=== PATIENT | male | born 1990 | race Caucasian/White ===

== ENCOUNTER 2020-12-31 21:17 | Emergency (ER) | payer SELFPAY ==
[2020-12-31 21:19] VITALS: BP 117/82; PULSE 80; RESP 14; TEMP 36.6; O2SAT 97; BMI 36.0
--- NOTE | 2020-12-31 21:59 | EKG12_ITS ---
Test Reason : CP Blood Pressure : / mmHG Vent. Rate : 067 BPM Atrial Rate : 067 BPM P-R Int : 132 ms QRS Dur : 090 ms QT Int : 368 ms P-R-T Axes : 049 045 062 degrees QTc Int : 388 ms Normal sinus rhythm with sinus arrhythmia Normal ECG Confirmed by PATRICK HART, KELLY ([id number]), state editor URBANO ENRIQUEZ ([id number]) on 01/04/2021 10:57:17 AM Referred By: AMOS SIDDIQUI Confirmed By:KELLY NGUYEN MD
--- NOTE | 2020-12-31 21:59 | RAD_ITS ---
EXAM: XR CHEST, 1 VIEW : 1990 CLINICAL INDICATION: cp TECHNIQUE: Frontal view of the chest. This report was created using [employer] report generation technology. COMPARISON: None. FINDINGS: LUNGS AND PLEURAL SPACES: Unremarkable. No consolidation or edema. No pneumothorax. No effusion. HEART: Unremarkable. Cardiac silhouette not enlarged. MEDIASTINUM: Central airways and mediastinal contour are unremarkable. BONES/JOINTS: Unremarkable. SOFT TISSUES: Unremarkable. RAD/Chest 1 View (Portable) IMPRESSION: No radiographic evidence of acute cardiopulmonary disease. at 2247 Reported and signed by: Thuan De La Rosa MD Electronically Signed: Thuan De La Rosa MD at 22:46 EDT Tel , Service support ,
--- NOTE | 2020-12-31 22:34 | EDS_ITS ---
HPI History of Present Illness Chief Complaint: Chest Pain Informant: patient Onset/Context/Timing Onset: Weeks Activity at onset: gradual Timing: Intermittent Quality: Positive for Pain and Sharp Location: Left Chest Current Severity: Gone Maximum Severity: Mild Worsened By: Nothing Relieved By: Nothing Narrative Prior Similar Symptoms: No Recent Illness/Hospitalization: No CVD Risk Factors: Negative for Hypertension, Diabetes, Hypercholesterolemia, Family History 1' </=55 and Smoking PE Risk Factors: Negative for Recent Travel/Surgery, Recent Immobilization, Prior DVT or PE, Cancer and OCP + Smoking + >/=35 TAD Risk Factors: Negative for Marfan's Syndrome and Hypertension [facility] Medical History Allergies Home Medications NK 12/31/20 [History Last Taken Unknown] Allergy/AdvReac Type Severity Reaction Status Date / Time No Known Allergies Allergy Verified 12/31/20 21:19 Social History Smoking Status: Unknown if ever smoked ROS ROS ED ROS Narrative Denies recent illness. No significant travel, surgery or immobilization. No DVT or PE history. This is not exertional chest pain. Review of Systems ROS Unobtainable: Denies due to encephalopathy Constitutional Constitutional ED: Denies chills or fever(s) Eyes Eyes: Denies none or change in vision ENT ENT ED: Denies ear pain or sore throat Cardiovascular Cardiovascular: Reports as per HPI and chest pain; Denies orthopnea, palpitations, paroxysmal nocturnal dyspnea or racing heartbeat Respiratory/Chest Respiratory/Chest: Denies cough, dyspnea, dyspnea on exertion, orthopnea or paroxysmal nocturnal dyspnea Gastrointestinal Gastrointestinal: Denies abdominal pain, diarrhea, nausea or vomiting Genitourinary Genitourinary ED: Denies dysuria or hematuria Musculoskeletal Musculoskeletal: Denies arthralgias or myalgias Integumentary Denies rash Neurologic Neurologic: Denies headache(s) Psychiatric Psychiatric: Denies depression Endocrine Endocrinology: Denies polyuria Hematologic/Lymphatic Hematologic/Lymphatic: Denies easy bruising Allergic/Immunologic Allergic/Immunologic ED: Denies urticaria EXAM Physical Exam Narrative Exam Narrative: 30-year-old male no acute distress. Vital signs stable afebrile. Pulse ox 97% on room air no signs hypoxia. Exam normal. Lungs clear to auscultation bilaterally. Heart regular rate and rhythm no murmur rate about 70. Chest wall completely nontender. Abdomen soft nontender. Equal symmetrical radial pulses. Moving all 4 extremities. Calves are nontender without edema or cords. Normal exam. Const Vital Signs: 12/31/20 21:19 12/31/20 21:55 Temperature 97.9 F Temperature Source Temporal Pulse Rate 80 Respiratory Rate 14 Respiratory Effort Normal Non-Labored Blood Pressure 117/82 H Blood Pressure Mean 93 Pulse Ox 97 Oxygen Delivery Method Room Air Positive well nourished and well developed; Negative for obese, cachectic, contractures or unkempt General Appearance ED: well developed and NAD; Negative for unkempt, cachectic, contractures or pallor Nutritional Appearance: Negative for cachectic or obese HEENT Reports moist mucous membranes normocephalic and atraumatic; Negative for trauma or tenderness Eyes PERRL and EOMs intact bilaterally Neck no lymphadenopathy, supple and no JVD General: Negative for tenderness Chest Wall inspection of chest normal and palpation of chest normal Chest: Negative for tenderness Resp normal respiratory effort and clear to auscultation bilaterally Effort and Inspection: respiratory distress Auscultation: Negative for rales, rhonchi or wheezes Cardio regular rate, regular rhythm, S1 normal heart sound, S2 normal heart sound and no murmurs Rate: Negative for bradycardia or tachycardic GI normal to inspection, nondistended, normoactive bowel sounds, soft to palpation, non-tender, non-distended and no masses Back/Spine no CVA tenderness and no thoracic nor lumbar tenderness Extremity normal to inspection General Extremety ED: Negative for edema or tenderness General Extremity: Negative for edema Neuro oriented x3 and No CN's II-XII intact bilaterally Sensorium / Orientation: awake, alert, oriented to person, oriented to place and oriented to time Motor Exam: strength 5/5 throughout Psych mental status grossly normal Appearance: Negative for unkempt Mood & Affect: Negative for depressed or tearful Skin no rashes or lesions noted and no wounds General Skin Exam: Negative for jaundice or pallor Heart Score History: Slightly/Non-Suspicious ECG: Normal Age: </= 45 years Risk Factors: No Risk Factors Score: 0 MDM MDM MDM Narrative Medical decision making narrative: 30-year-old male normal exam with a nonca rdiac sounding atypical left-sided chest pain has been intermittent for a week. Not exertional. Is not reproducible. He has no DVT or PE risk factors or history. EKG is normal. I do not think he needs any further work-up. Radiography Chest X-Ray - ED: 1 View, Read by ED Physician, Normal, Heart, Lungs, Mediastinum, Bony Structures, No Acute Disease, Chronic Changes and No Infiltrates Rhythm Strip Rhythm Strip: Sinus Rhythm Rate: 67 Ectopy: None EKG Initial EKG: Attestation: I personally reviewed and interpreted this EKG as follows: Interpretation: Sinus Rhythm and No Acute Injury Pattern Comments: Normal sinus rhythm rate of 67 no acute signs of [place] or ischemia. No pericarditis. Prior EKG tracings: not available for review Discharge Plan Triage Chief Complaint: Chest Pain ED Provider: Rolan White Dx/Rx/DC Orders Clinical Impression: Chest pain of uncertain etiology Instructions: ED Pain, Acute, Uncertain Cause Prescriptions: No Action NK RF: 0 Primary Care Provider: [facility] ,Out of Referrals: [facility] Doctor,Out of [Primary Care Provider] - Activity Restrictions/Additional Instructions: Tylenol and/or Motrin for pain. Follow-up with your doctor if not improving. Return if feeling worse. Your EKG and chest x-ray tonight were unremarkable. Disposition Disposition: Home, Self Care
[2020-12-31 22:47] VITALS: PULSE 69; RESP 24; O2SAT 96
== END 2020-12-31 23:05 | disposition home or self-care (01) ==
PROVIDERS: Emergency Provider Emergency Medicine
DX: R07.9 Chest pain, unspecified (principal)
CPT/HCPCS: 71045; 93005; 99283; A4216

== ENCOUNTER 2023-08-06 21:20 | Emergency (ER) | payer SELFPAY ==
[2023-08-06 21:20] VITALS: BP 138/89; PULSE 74; RESP 18; TEMP 36.5; O2SAT 97; BMI 37.6
--- NOTE | 2023-08-06 21:32 | RAD_ITS ---
INDICATION: cough EXAMINATION/TECHNIQUE: X-RAY - XR Chest 2 Views COMPARISON: December 31, 2020 chest x-ray FINDINGS: LINES/DEVICES: None. LUNGS: Symmetric normal lung volumes. No airspace opacity or abnormal interstitial pattern. No nodule or mass. No pleural effusion or pneumothorax. MEDIASTINUM AND CARDIOVASCULAR STRUCTURES: Normal size and contour of the cardiomediastinal silhouette. No evidence of pulmonary vascular congestion. BONES AND SOFT TISSUES: No fracture or focal osseous lesion. Moderate degenerative endplate changes lower thoracic spine for age. RAD/Chest PA and Lateral IMPRESSION: 1. No radiographic evidence of acute cardiopulmonary disease. Electronically Signed: Joe De La Cruz DO at 22:01 EDT ,
--- NOTE | 2023-08-06 21:33 | EX.ED.DYSGE1 ---
HPI History of Present Illness Chief Complaint: General Illness Detail of Chief Complaint: Sore throat, cough Informant: patient Narrative Narrative: Patient presents secondary to sore throat and cough that started 2 days ago. Patient states he woke Friday morning with sore throat and chills. He has had cough. He states he will cough up some dark-colored mucus and has had some posttussive emesis as well. He denies chest pain. He has had some reflux pain especially just before he has posttussive emesis. [facility] Medical History Allergies Home Medications NK 12/31/20 [History Last Taken Unknown] Allergy/AdvReac Type Severity Reaction Status Date / Time No Known Allergies Allergy Verified 08/06/23 21:24 Social History Smoking Status: Never smoker ROS ROS ED Constitutional Constitutional ED: Reports chills; Denies fever(s) Eyes Eyes: Denies change in vision or discharge from eye(s) ENT ENT ED: Reports sore throat; Denies discharge from eye(s), ear pain or rhinorrhea Cardiovascular Cardiovascular: Denies chest pain or palpitations Respiratory/Chest Respiratory/Chest: Reports cough; Denies dyspnea Gastrointestinal Gastrointestinal: Reports vomiting; Denies abdominal pain, diarrhea or nausea Musculoskeletal Musculoskeletal: Denies back pain or extremity pain Integumentary Denies Abrasions or rash Neurologic Neurologic: Denies headache(s) or weakness Allergic/Immunologic Allergic/Immunologic ED: Denies lip swelling or urticaria EXAM Physical Exam Const Vital Signs: 08/06/23 21:20 Temperature 97.7 F L Temperature Source Oral Pulse Rate 74 Respiratory Rate 18 Blood Pressure 138/89 H Blood Pressure Mean 105 Pulse Ox 97 Oxygen Delivery Method Room Air Positive well nourished and well developed General Appearance ED: well developed HEENT Reports moist mucous membranes HEENT Narrative: Posterior pharynx exam unremarkable. Uvula midline. Eyes EOMs intact bilaterally Chest Wall inspection of chest normal and palpation of chest normal Resp normal respiratory effort and clear to auscultation bilaterally Cardio regular rate and regular rhythm GI non-tender Palpation: soft Extremity normal to inspection Neuro oriented x3 and no sensory deficits noted Motor Exam: strength 5/5 throughout Psych mental status grossly normal Skin no rashes or lesions noted MDM MDM MDM Narrative Medical decision making narrative: Swab for COVID, influenza, and RSV will be obtained. Rapid strep obtained. Chest x-ray obtained to evaluate for acute lung pathology, cardiac size, or mediastinal abnormality. Radiography Diagnostic Testing: Clinical Impression(s) from Imaging Studies Chest X-Ray 08/06/23 21:32 IMPRESSION: 1. No radiographic evidence of acute cardiopulmonary disease. Electronically Signed: Joe De La CruzDO at 22:01 EDT , Treatment and Re-Evaluation :: 2 view chest x-ray per my interpretation reveals no evidence of focal infiltrate. Radiology interpretation reviewed and agrees. Rapid strep test is negative. Swab for COVID and RSV is negative. Patient does test positive for influenza B. Test results are discussed with him. He will use Tylenol and ibuprofen as needed for pain. I will write him a work note stating that he can return to work once free of fever for 24 hours. Return instructions provided. Discharge Plan Triage Chief Complaint: General Illness ED Provider: Melissa Berrios Dx/Rx/DC Orders Clinical Impression: Influenza B, Post-tussive emesis Instructions: ED Influenza (Adult) Prescriptions: No Action NK Stand Alone Forms: ED Work / School Excuse Primary Care Provider: Alfredito King Referrals: Alfredito King DO [Primary Care Provider] - 1-2 Weeks Care Physician,No Primary [Non-Staff] - Disposition Disposition: Home, Self Care
[2023-08-06 22:40] VITALS: BP 134/81; PULSE 75; RESP 18; TEMP 36.6; O2SAT 96
== END 2023-08-06 22:41 | disposition home or self-care (01) ==
PROVIDERS: Emergency Provider Emergency Medicine; PCP Family Medicine; Visit Provider Emergency Medicine
DX: J10.1 Influenza due to other identified influenza virus with other respiratory manifestations (principal); R11.10 Vomiting, unspecified
CPT/HCPCS: 71046; 87631; 87651; 99282

== ENCOUNTER 2024-09-15 10:58 | Emergency (ER) | payer OTHER, SELFPAY ==
[2024-09-15 10:59] VITALS: BP 131/77; PULSE 78; RESP 16; TEMP 36.4; O2SAT 97; BMI 5428.7
[2024-09-15 15:10] VITALS: BP 125/76; PULSE 81; RESP 14; O2SAT 98
--- NOTE | 2024-09-15 15:18 | EX.ED.UPPERE ---
HPI History of Present Illness Chief Complaint: Laceration Detail of Chief Complaint: Laceration to right index finger Informant: patient Narrative Narrative: Patient presents with laceration to the right index finger that occurred around 9:30 AM. Patient states that he was making lunch and cutting an apple when he accidentally lacerated his finger. Patient is right-hand dominant. Patient unsure of his last tetanus shot. [facility] Medical History Allergies Home Medications ?Medication ?Instructions ?Recorded ?Last Taken ?Type cephalexin 500 mg capsule 500 mg PO Q6 #40 CAPSULES 09/15/24 Unknown Rx Allergy/AdvReac Type Severity Reaction Status Date / Time No Known Allergies Allergy Verified 09/15/24 10:59 Social History Smoking Status: Never smoker ROS ROS ED Review of Systems ROS Unobtainable: other Constitutional Constitutional ED: Reports lethargy; Denies chills, fever(s), sweats or weight loss Eyes Eyes: Denies blurry vision, change in vision or diplopia ENT ENT ED: Denies rhinorrhea or sore throat Cardiovascular Cardiovascular: Denies chest pain, orthopnea or racing heartbeat Respiratory/Chest Respiratory/Chest: Denies cough, dyspnea, dyspnea on exertion, orthopnea or sputum Gastrointestinal Gastrointestinal: Denies abdominal pain, diarrhea, nausea or vomiting Genitourinary Genitourinary ED: Denies dysuria, hematuria or urinary frequency Musculoskeletal Musculoskeletal: Reports other Details: Right index finger laceration ; Denies arthralgias, back pain, myalgias or neck pain Integumentary Denies abscess, Abrasions or rash Neurologic Neurologic: Denies headache(s) or weakness Psychiatric Psychiatric: Denies anxiety, depression or suicidal thoughts Endocrine Endocrinology: Denies polydipsia, polyphagia or polyuria Hematologic/Lymphatic Hematologic/Lymphatic: Denies easy bleeding, easy bruising or lymphadenopathy Allergic/Immunologic Allergic/Immunologic ED: Denies mouth swelling, tongue swelling or urticaria EXAM Physical Exam Const Vital Signs: 09/15/24 10:59 Temperature 97.5 F L Temperature Source Oral Pulse Rate 78 Respiratory Rate 16 Blood Pressure 131/77 H Blood Pressure Mean 95 Pulse Ox 97 Oxygen Delivery Method Room Air Positive well nourished and well developed General Appearance ED: well developed and NAD HEENT Reports TM's clear and moist mucous membranes normocephalic and atraumatic; Negative for trauma or tenderness Tympanic Membrane ED: Yes TM's clear Eyes PERRL and EOMs intact bilaterally General Eye ED: Negative for pale conjunctiva or scleral icterus Neck no lymphadenopathy, supple and no JVD General: Negative for tenderness Chest Wall inspection of chest normal and palpation of chest normal Chest: Negative for tenderness Resp normal respiratory effort and clear to auscultation bilaterally Effort and Inspection: Negative for respiratory distress or pain with movement Auscultation: Negative for rhonchi, wheezes or diminished lung sounds Cardio regular rate, regular rhythm, S1 normal heart sound, S2 normal heart sound and no murmurs Peripheral Pulses: pulses 2+ throughout GI normal to inspection, nondistended, normoactive bowel sounds, soft to palpation, non-tender, non-distended and no masses Back/Spine no CVA tenderness and no thoracic nor lumbar tenderness Extremity Extremity Narrative: Right index finger-patient has a 2 cm laceration over the base of the proximal phalanx that is horizontal and distal to the MCP joint. Normal extension against resistance and normal strength. Good range of motion of flexion extension at the DIP PIP and MCP joints. No active bleeding noted currently. General Extremety ED: Negative for edema General Extremity: Negative for edema Neuro oriented x3, CN's II-XII intact bilaterally, no sensory deficits noted and gait normal Sensorium / Orientation: awake, alert, oriented to person, oriented to place and oriented to time Motor Exam: strength 5/5 throughout and strength abnormal Psych mental status grossly normal Skin no rashes or lesions noted and no wounds MDM MDM MDM Narrative Medical decision making narrative: Patient with a 2 cm laceration over the dorsum of the proximal phalanx near the base. No active bleeding. Good range of motion in flexion extension. See procedure note for laceration repair. After patient was anesthetized and wound was further investigated it does appear that he has a laceration traversing horizontally across the extensor tendon that seems to be partial-thickness and involves about 70% of the tendon. The edges are well-approximated. Patient tolerated repair well. Will discuss with Dr. hCester for outpatient follow-up. I will apply clean dressing and splint patient in extension. Advised to have sutures removed in 10 days. Will start on Keflex. He was given tetanus booster. Procedures Lacerations Right index finger laceration: Length: 0.79 in Depth: Tendon Shape: Linear Prep: Sterile Conditions and Shure-Clens Laceration repair: Irrigated, Lidocaine and Local Irrigated (ml): 50 Number of Sutures/[place]: 4 Suture Information: Ethilon, Simple and 5-0 Discharge Plan Triage Chief Complaint: Laceration ED Provider: Erin Holley Dx/Rx/DC Orders Clinical Impression: Finger laceration, Extensor tendon laceration, finger, open wound Instructions: ED Laceration, Hand: All Closures, ED Tendon Laceration Prescriptions: New cephalexin 500 mg capsule 500 mg PO Q6 Qty: 40 0RF Primary Care Provider: Alfredito King Referrals: Alfredito King DO [Primary Care Provider] - Nito Chester MD [Med Staff - Active Staff] - 10 Day for suture removal Print Language: [place] Disposition Disposition: Home, Self Care
[2024-09-15] MEDS: Cephalexin 250 MG Capsule 500 MG PO (15:57)
[2024-09-15] MEDS: Lidocaine 1% (20 ml mdv) 20 ML Vial 5 ML INFILT (15:58)
[2024-09-15] MEDS: Diphth,Pertuss(Acell),Tet Vac 0.5 ML Vial IM (16:01)
[2024-09-15 16:32] VITALS: BP 132/69; PULSE 81; RESP 14; TEMP 36.6; O2SAT 100
== END 2024-09-15 16:36 | disposition home or self-care (01) ==
LOC: ED 15:57
PROVIDERS: Emergency Provider Emergency Medicine; PCP Family Medicine; Visit Provider Emergency Medicine
DX: S66.320A Laceration of extensor muscle, fascia and tendon of right index finger at wrist and hand level, initial encounter (principal); W26.8XXA Contact with other sharp object(s), not elsewhere classified, initial encounter; Z23 Encounter for immunization
CPT/HCPCS: 12001; 90715; 99284

== ENCOUNTER 2024-09-21 05:49 | Day surgery (SDC) | payer OTHER, SELFPAY ==
[2024-09-21] VITALS (9 sets, daily range): BP systolic 115–147; BP diastolic 80–94; PULSE 54–82; RESP 16–20; TEMP 35.9–36.3; O2SAT 92–99; BMI 37.5
[2024-09-21] MEDS: Lactated Ringers 1,000 ML 15 ML IV (06:42)
--- NOTE | 2024-09-21 07:15 | PCM.PRE.AN2 ---
ASA Classification* ASA Classification ASA Classification: 2 Assessment & Plan Anesthesia* Anesthesia Assessment Anesthesia Assessment: Discussed sedation and/or anesthesia options, risks, benefits, and alternatives with patient/parents/legal guardian/POA. Questions invited. The patient/parents/legal guardian/POA seems to understand and agrees to proceed with anesthesia plan. Reviewed the physical assessment, medical history, allergy history and patient home medications list prior to surgery/procedure/anesthetic and documented any changes. Performed airway and anesthesia risk assessments. Anesthesia Type Anesthesia Type: General History Source History Obtained from:: Patient and Chart Anesthesia Focused Assessment* Temperature: 96.7 F Pulse Rate: 56 Blood Pressure: 131/82 Respiratory Rate: 20 Pulse Ox: 97 Oxygen Delivery Method: Room Air Airway Assessment Mouth opens: >3 cm Mallampati Score: II Teeth Condition: Intact Focused Labs Anesthesia Preop lab: CBC WBC 8.3 K/mm3 (4.4-11.0) 12/26/14 19:40 12/26/14 RBC 4.92 M/mm3 (4.6-6.2) 12/26/14 19:40 12/26/14 Hgb 15.9 g/dl (13.0-16.5) 12/26/14 19:40 12/26/14 Hct 46.5 % (40-54) 12/26/14 19:40 12/26/14 Plt Count 200 K/mm3 (150-450) 12/26/14 19:40 12/26/14 CHEMISTRY Potassium 4.8 mmol/L (3.5-5.1) 12/26/14 19:40 12/26/14 Sodium 141 mmol/L (136-145) 12/26/14 19:40 12/26/14 BUN 14 mg/dL (7-18) 12/26/14 19:40 12/26/14 Creatinine 0.81 mg/dL (0.70-1.30) 12/26/14 19:40 12/26/14 Glucose 94 mg/dL (70-110) 12/26/14 19:40 12/26/14 COAG Pre-Assessment Diagnosis/Proposed Procedure Planned Operative Procedure(s): REPAIR TENDON HAND, RIGHT Anesthesia History 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 When Was Last Pacemaker Check QUESTION #4 FULL TEXT: You/Your Family Experience fever (hyperthermia) with Anesthesia Last Oral Intake Last Oral intake: Last Oral Intake NPO since 23:00 09/21/24 06:31 Meds taken in AM with sips of water? Meds patient instructed to take am of surgery PONV PONV - director of sales support: PONV - director of sales support Female No 09/20/24 10:38 HX of Motion Sickness No 09/20/24 10:38 HX of N/V After Surgery No 09/20/24 10:38 Non-Smoker Yes 09/20/24 10:38 Duration of Surgery greater Yes 09/20/24 10:38 than 60 minutes Number of Risk Factors 2 09/20/24 10:38 PONV Score Moderate Risk 09/20/24 10:38 Height & Weight Height & Weight: Anesthesia: Height & Weight Height 6 ft 09/21/24 06:31 Weight: 125.7 kg 09/21/24 06:31 Body Mass Index (BMI) 37.5 09/21/24 06:31 Respiratory Assessment Respiratory Assessment - director of sales support: Respiratory Tract Infection Hx - director of sales support Hx Respiratory Tract Infection No 09/20/24 10:38 STOP Sleep Apnea STOP Sleep Apnea - director of sales support: STOP Sleep Apnea - director of sales support Hx Hypertension No 09/20/24 10:38 Hx Sleep Apnea No 09/20/24 10:38 CPAP No 12/27/14 01:40 BIPAP No 12/27/14 01:40 Do you snore loudly (louder No 09/20/24 10:38 than talking or can be heard Do you often feel tired/ No 09/20/24 10:38 fatigued/ sleepy during daytime? Has anyone observed you stop No 09/20/24 10:38 breathing during sleep? STOP Results Negative 09/20/24 10:38 QUESTION #5 FULL TEXT : Do you snore loudly (louder than talking or can be heard through closed doors)? 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 Specify any problems Hx of Preganancy in last 3 N/A 09/20/24 10:38 Months Nurse Filling Out Transfusion NBUCHER 09/20/24 10:38 & Questions: Date: 09/20/24 09/20/24 10:38 Time: 10:39 09/20/24 10:38 Patient unable to answer at this time (ie. confused, unrespo /Reproduction History /Reproductive History - director of sales support: /Reproductive Hx- director of sales support Hx Now No 09/20/24 10:38 Gestational Age (in weeks): EDC: Hx Hx Para Hx Section SAB No 09/20/24 10:38 Active Medications Active Medications: Current Medications Generic Name Dose Route Start Last Admin Trade Name Freq PRN Reason Stop Dose Admin Lactated Ringer's 1,000 mls @ 15 mls/hr 09/21/24 06:15 09/21/24 06:42 IV 15 mls/hr .Q48H DAYLIN Administration PFSH Medical History Wears glasses Chewing tobacco use Non-smoker Allergies Home Medications ?Medication ?Instructions ?Recorded ?Last Taken ?Type cephalexin 500 mg capsule 500 mg PO Q6 #40 CAPSULES 09/15/24 09/21/24 Rx cetirizine 10 mg tablet (24Hour 10 mg PO DAILY PRN allergy symptoms 09/20/24 Unknown History Allergy) Held on 09/21/24. Instructions: wrong med cholecalciferol (vitamin D3) 10 125 unit PO DAILY 09/20/24 09/19/24 History mcg (400 unit) tablet (Vitamin D3) magnesium 200 mg tablet 200 mg PO DAILY 09/20/24 09/19/24 History multivitamin (Daily Multi-Vitamin 1 tab PO DAILY 09/20/24 09/19/24 History tablet) cetirizine 5 mg-pseudoephedrine ER 1 tab PO .qday PRN nasal congestion 09/21/24 09/19/24 History 120 mg tablet,extended release,12hr (All Day Allergy-D) zinc gluconate 50 mg tablet 50 mg PO DAILY 09/21/24 09/19/24 History Allergy/AdvReac Type Severity Reaction Status Date / Time No Known Allergies Allergy Verified 09/21/24 06:24 Surgical History (Updated 09/20/24 @ 10:44 by Anni Marina) History of surgery on wrist History of appendectomy Social History Smoking Status: Never smoker Addt'l Information Additional Findings: EKG reviewed. NSR Review of Systems (Anesthesia) ROS Narrative System reviewed and no additional complaints, except as documented. Physical Exam Const alert and oriented x3 HEENT dentition normal Resp normal respiratory effort Cardio regular rate Back/Spine normal ROM Neuro oriented x3 and moves all extremities
--- NOTE | 2024-09-21 07:28 | PCM.HP.STD ---
HPI - General HPI Narrative Amari Guo is a delightful 34-year-old male who uses chewing tobacco (discussed cessation and effects on wound healing) who has a left index finger dorsal laceration with concern for partial (per emergency room physician report (I spoke to him on the phone) 70% laceration of the extensor digitorum communis (EDC) tendon) tendon laceration that was sustained on Friday, 15 Sep 2024, when the patient was on his lunch break and cutting something in the kitchen with a knife. Patient is left-hand dominant. 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 Patient reports sharp severe pain in the affected extremity worsened by movements and improved with rest and elevation. Tetanus was updated in the emergency department on 15 September He has been on Keflex since the injury Current Encounter (DATE OF SURGERY H&P UPDATE): I saw and examined the patient this morning in pre-operative holding. We discussed risks and benefits of today's surgery and they would like to proceed. NO CHANGE in health history since last seen and evaluated. Ready to proceed with surgery. [facility] Medical History Wears glasses Chewing tobacco use Non-smoker Allergies Home Medications ?Medication ?Instructions ?Recorded ?Last Taken ?Type cephalexin 500 mg capsule 500 mg PO Q6 #40 CAPSULES 09/15/24 09/21/24 Rx cetirizine 10 mg tablet (24Hour 10 mg PO DAILY PRN allergy symptoms 09/20/24 Unknown History Allergy) Held on 09/21/24. Instructions: wrong med cholecalciferol (vitamin D3) 10 125 unit PO DAILY 09/20/24 09/19/24 History mcg (400 unit) tablet (Vitamin D3) magnesium 200 mg tablet 200 mg PO DAILY 09/20/24 09/19/24 History multivitamin (Daily Multi-Vitamin 1 tab PO DAILY 09/20/24 09/19/24 History tablet) cetirizine 5 mg-pseudoephedrine ER 1 tab PO .qday PRN nasal congestion 09/21/24 09/19/24 History 120 mg tablet,extended release,12hr (All Day Allergy-D) zinc gluconate 50 mg tablet 50 mg PO DAILY 09/21/24 09/19/24 History Allergy/AdvReac Type Severity Reaction Status Date / Time No Known Allergies Allergy Verified 09/21/24 06:24 Surgical History (Updated 09/20/24 @ 10:44 by Anni Marina) History of surgery on wrist History of appendectomy Social History Smoking Status: Never smoker Vital Signs Vital Signs Vital Signs: 09/21/24 06:31 09/21/24 06:31 09/21/24 07:18 Temperature 96.7 F L 96.7 F L Temperature Source Temporal Pulse Rate 56 L 56 L Respiratory Rate 20 H 20 H Respiratory Pattern Normal Blood Pressure 131/82 H 131/82 H Blood Pressure Mean 98 Blood Pressure Source Monitor Blood Pressure Position Semi-Fowlers Blood Pressure Location Left Arm Pulse Ox 97 97 Oxygen Delivery Method Room Air Room Air Weight Weight: 277 lb 1.937 oz Body Mass Index (BMI) 37.5 Physical Exam Const Constitutional Narrative: Right upper Extremity Inspection: Right dorsal index finger laceration that is clean dry and intact with nylon sutures in place. It is located just distal to the MCP joint on the index finger. Palpation: No fluid collections Motor: Able to bend and extend all MP, PIP, and DIP joints. He is able to hyperextend his index finger from neutral and he is able to keep his index finger extended when the ulnar 3 fingers are flexed (EIP intact). Sensory: Intact to light touch on the radial and ulnar borders, notably distal to the zone of injury in the index finger. Vascular: Finger tips are warm and well perfused with <2 second capillary refill. Assessment & Plan Assessment/Plan (1) Extensor tendon disruption: PLAN: Plan Per emergency room department, there is a 70% laceration to the EDC tendon. I talked to the patient about the risks, benefits, and alternatives to repair of the EDC when it is partially lacerated. Given that is lacerated greater than 50%, I think it is worth exploring and repairing in the operating room. He agreed and would like to proceed. I talked to the patient extensively about the risks of surgery, including bleeding, infection, damage to surrounding structures, poor scaring, surgical site dehiscence and wound formation, need for wound care, need for repeat operations, failure to obtain the desired result (rerupture of the tendon ), need for hand therapy postoperatively, need to follow the hand therapy protocol or risk rerupture (with no heavy lifting for 3 months), DVT/PE, and the risks of anesthesia including , including stroke (from low blood pressure/ischemia or clot). The benefits and alternatives of this surgery were also discussed. All of their questions were answered, and they agreed to proceed with surgery. Plan to explore the laceration in the operating room and fix the EDC tendon if it is in fact greater than 50% lacerated. Patient happy with the plan. We will schedule for surgery. INTERVAL H&P PLAN, DATE OF SURGERY: We will proceed with surgery today. Re-iterated above noted risks, benefits, and alternatives.
[2024-09-21] MEDS: Cefazolin 3 GM in 0.9% Normal Saline (100mL Bag) 100 ML IV (07:39)
--- NOTE | 2024-09-21 07:45 | OP.PCM_ITS ---
Operative Report (Standard) Operative Information Date of Procedure: 09/21/24 Pre-Operative Diagnosis: 1) Right index finger extensor digitorum com,unis (EDC) tendon laceration, zone 4 Post-Operative Diagnosis: Same Surgery/Procedure Performed: 1) Repair of right index finger EDC tendon laceration, Zone 4 (finger) (CPT: 66903) combination welder: Yes Cnc Technician: Rolan Henning Tasks completed by first aid trainer: Retracting Type of Anesthesia: General/Supplemental (LMA with 6cc of 0.25% marcaine with 1:200,000 epinephrine ) RN Documented Start/Stop Times: Operation Date: 09/21/24 07:30 Case Time Into Pre-Op 09/21/24 06:04 Out of Pre-Op 09/21/24 07:26 Anesthesia Start 09/21/24 07:28 Into Room 09/21/24 07:28 Procedure Start 09/21/24 07:52 Procedure End 09/21/24 08:17 Anesthesia End 09/21/24 08:24 Out of Room 09/21/24 08:24 Into Recovery 09/21/24 08:26 Procedure Start Time: 07:52 Procedure Stop Time: 08:17 Select all DRAINS/GRAFTS/IMPLANTS that apply: None Estimated Blood Loss: minimal Specimen collected: No Description of surgery: Indications: Amari Guo is a 34 YO LHD male who cut his right index finger EDC tendon with a knife last week while on his lunch break. Per ED report, when they washed out and closed wound, they noticed a significant cut in the EDC tendon. Patient presents today for exploration and repair. Discussed risks, benefits, and alternatives to the procedure, and he elected to proceed. Procedure Details: Patient was correct identified in preoperative holding and marked. He was taken back to the operating room where he was administered anesthesia and an LMA, as well as 6 cc of quarter percent Marcaine with 1-200,000 epinephrine for local block. He was prepped and draped in sterile fashion and an Esmarch was used to exsanguinate the right upper extremity and a tourniquet was placed on the right arm and 250 mmHg. A timeout was performed. The sutures were removed. The wound was irrigated with 450 cc of Irrisept followed by a liter normal saline. There were no signs of infection. The EDC tendon in zone 4 of the index finger was noted to be lacerated 90%. The tendon was flat at this level and therefore decision was made to throw two separate [id number] 3-0 Ethibond sutures to approximate the tendon edges. Excellent approximation without any gapping was achieved. Patient had normal cascade of the wrist and hand/fingers following the repair. The wound was again irrigated, the tourniquet was let down and hemostasis was obtained with bipolar electrocautery. 3-0 nylon suture was used to close the wound with interrupted horizontal mattress sutures. Xeroform and a plaster splint was applied with the fingers in full extension. Patient tolerated the procedure well. He was awakened and taken to the PACU in stable condition. Postoperative plan: Follow-up in clinic in 1 week for splint removal and wound check followed by placement of an extension splint for another 2 weeks, and then he will begin an extensor tendon protocol with occupational therapy. Surgical Findings: L90% laceration to right index finger EDC tendon in Zone 4 Lacerated tendon above, repaired tendon below Complications Complications: No
[2024-09-21] MEDS: Bupiv/Epi 0.25% 30 ML Vial (07:55)
--- NOTE | 2024-09-21 08:33 | PCM.POST.ANE ---
Anesthesia: Postop Eval I Current Vital Signs Temperature: 97.3 F Pulse Rate: 73 Blood Pressure: 147/86 Respiratory Rate: 16 Pulse Ox: 99 Oxygen Delivery Method: Room Air Assessment Airway patent: Yes Spontaneous unlabored respirations: Yes Mental status: Awake nausea: No Vomiting: No Anesthesia Complication: No Fluid Hydration Crystalloid volume administer (ml): 500 Total IV fluid infused: 500 Progress Note Anesthesia document: Postop Eval 1 completed: Yes
--- NOTE | 2024-09-21 10:13 | POSTOPAN2_ITS ---
Anesthesia Postop Eval I Sum Postop Eval Completion status Anesthesia document: Postop Eval 1 completed: Yes Anesthesia Postop Eval I Summary Anesthesia Postop Eval I Summary: Anesthesia Postop Eval I: Assessment Summary Airway patent Yes 09/21/24 08:34 GAS DISTRIBUTION AND EMERGENCY CLERK.APAT Spontaneous unlabored Yes 09/21/24 08:34 GAS DISTRIBUTION AND EMERGENCY CLERK.APAT respirations Mental status Awake 09/21/24 08:34 GAS DISTRIBUTION AND EMERGENCY CLERK.APAT nausea No 09/21/24 08:34 GAS DISTRIBUTION AND EMERGENCY CLERK.APAT Vomiting No 09/21/24 08:34 GAS DISTRIBUTION AND EMERGENCY CLERK.APAT Anesthesia Postop Eval I: Fluid Summary Crystalloid volume administer 500 09/21/24 08:34 GAS DISTRIBUTION AND EMERGENCY CLERK.APAT (ml) Colloids volume administered ( ml) Blood Product volume administered (ml) Total IV fluid infused 500 09/21/24 08:34 GAS DISTRIBUTION AND EMERGENCY CLERK.APAT Anesthesia Postop Eval I: Summary Notes Anesthesia Complication No 09/21/24 08:34 GAS DISTRIBUTION AND EMERGENCY CLERK.APAT Anesthesia Complication Comment: Post-operative progress note Anesthesia: Postop Eval II Evaluation Mental status: Awake and Calm Pain Level: 1 nausea: No Vomiting: No Complications Anesthesia Complication: No
--- NOTE | 2024-09-21 10:13 | PCM.POSTANE2 ---
Anesthesia Postop Eval I Sum Postop Eval Completion status Anesthesia document: Postop Eval 1 completed: Yes Anesthesia Postop Eval I Summary Anesthesia Postop Eval I Summary: Anesthesia Postop Eval I: Assessment Summary Airway patent Yes 09/21/24 08:34 SECOND WORKER.APAT Spontaneous unlabored Yes 09/21/24 08:34 SECOND WORKER.APAT respirations Mental status Awake 09/21/24 08:34 SECOND WORKER.APAT nausea No 09/21/24 08:34 SECOND WORKER.APAT Vomiting No 09/21/24 08:34 SECOND WORKER.APAT Anesthesia Postop Eval I: Fluid Summary Crystalloid volume administer 500 09/21/24 08:34 SECOND WORKER.APAT (ml) Colloids volume administered ( ml) Blood Product volume administered (ml) Total IV fluid infused 500 09/21/24 08:34 SECOND WORKER.APAT Anesthesia Postop Eval I: Summary Notes Anesthesia Complication No 09/21/24 08:34 SECOND WORKER.APAT Anesthesia Complication Comment: Post-operative progress note Anesthesia: Postop Eval II Evaluation Mental status: Awake and Calm Pain Level: 1 nausea: No Vomiting: No Complications Anesthesia Complication: No
== END 2024-09-21 09:36 | disposition home or self-care (01) ==
LOC: SDC 05:50 → AC 05:51
PROVIDERS: PCP Family Medicine; Referring Provider Surgery Plastic and Reconstructive Surgery; Visit Provider Surgery Plastic and Reconstructive Surgery
PROC: (CPT 26418; principal; 2024-09-21 07:15)
DX: S66.311A Strain of extensor muscle, fascia and tendon of left index finger at wrist and hand level, initial encounter (principal); S61.211A Laceration without foreign body of left index finger without damage to nail, initial encounter; W26.0XXA Contact with knife, initial encounter; F17.220 Nicotine dependence, chewing tobacco, uncomplicated; Z79.899 Other long term (current) drug therapy
CPT/HCPCS: 26418; 01810; J2405

== ENCOUNTER 2024-12-06 17:00 | Outpatient (RCR) | payer OTHER, SELFPAY ==
--- NOTE | 2024-10-15 06:40 | HP.OTEVAL_ITS ---
Patient's Visit Information Visit Information Visit Information: MEGAN LOMAX Jr. is a 34 year old M, referred to Occupational Therapy by Dr. Nito Chester MD, with a diagnosis of EDC tendon repair. Date of Evaluation: 10/12/24 Occupational Therapist: Danielle Lilly, LANCE/Sandy, CHT Subjective Subjective: This 34 year old male was seen for OT eval with dx of laceration - disorders of synovium and tendon multiple sites. DOI September 15 laceration with box blank machine feeder of right IF. DOS September 21. pt arrives today 3 weeks s/p from extensor tendon repair in need of custom orthosis and initiation of zone 4 extensor tendon repair guidelines. 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 [email or web address] right hand: Current Pain Intensity: 0 Pain Intensity Range: 2 ROM ROM Comments: pt demo with full digit ext on right IF flexion of PIP to 20* Strength Strength Comments: will test later date Sensation Sensation Comments: denies Quick DASH-Disab of Arm,Shoulder& Hand Quick DASH Score: 51.7850 Goals Goal:Daily scar massage when approriate: Yes Goal:ROM equal to unaffected hand: Yes Goal:Support Director/Pinch strength at least 75% of unaffected hand: Yes Comment: not to initiate until week 6-8 Goal:No pain with affected hand use: Yes Goal:Full use of affected hand in daily activities including work: Yes Goal:Decrease scar hypersensitivity: Yes Other Goal: orthosis use: pt will demo understanding of using orthosis to provide support and protection with newly healing structures- pt will demo understanding of exercise orthosis by end of 1st visit Rehabilitation General Assessment: Pt arrives 3 weeks s/p from EDC repair zone 4 of left IF. Pt demo need for skilled OT services 1-2x week for 6-8 weeks to assist pt transitioning pt to his PLOF. Due to newly healing structures pts demo need for custom orthosis to allow for protection and support while structures are healing. Today therapist jose de jesus. custom orthosis for day use ( pt wanted MF included to decrease risk of use at work) therapist also jose de jesus. custom exercise splint allowing pt to flex IF to 30* / and exercise splint to allow for DIP flexion keeping PIPJ at 0*. pt demo understanding of exercise, orthosis use and agree to POC. Rehabilitation Potential: Good Anticipated Interventions Anticipated Interventions: Early Active Motion, A/AAROM/PROM, Strengthening, Scar Care, Triggerpoint Release, Modalities, Orthoses, Joint Protection/Energy Conservation, Ergonomic Education, Education re assistive Equipment, Education re Diagnosis and Home Program Visit Plan Frequency: 1-2x /Week Duration: 2 Months TEXT: Thank you for the opportunity to evaluate your patient. For Medicare and Medicare HMO plans, please review the plan of care and approve it. It will need to be FAXED BACK to us at [phone] for Medicare purposes. Please let me know if there are questions or concerns regarding this plan of ca re. Physician Signature: Date:
--- NOTE | 2024-12-06 17:22 | HP.OTDCSUM_ITS ---
Discharge Summary D/C Summary: It has been my pleasure to treat MEGAN LOMAX Jr. under orders from Dr. Nito Chester MD, for the diagnosis of EDC tendon repair for a total of 11 visit(s). Please see the following information for a summary of their discharge status. Overall Improvement % Improvement: 90 Objective Objective/Function: right IF MCP flexion 0/80* PIP 0/100* DIP 0/50* right gallery assistant strength #80 left 100# right lateral pinch 14# right tripod pinch 8# pt making great gains with ROM and strength pt is mowing the grass- weed eating- pulling weeds as well. pt states he can feel discomfort at is PIPJ when opening a bottle of pop. pt is IND with bathing and dressing. pt feels he is at his baseline prior to his injury- pt agrees with d/c. Goals Patient Goals: Improve Fine Motor Skills and Use Hand/Wrist/Arm Normally Again Goal:Daily scar massage when approriate: Yes Goal Progress: Goal Met Goal:ROM equal to unaffected hand: Yes Goal Progress: Goal Met Goal:Matlab Developer/Pinch strength at least 75% of unaffected hand: Yes Goal Progress: Goal Met Goal:No pain with affected hand use: Yes Goal Progress: Goal Met Goal:Full use of affected hand in daily activities including work: Yes Goal Progress: Goal Met Goal:Decrease scar hypersensitivity: Yes Goal Progress: Goal Met Other Goal: orthosis use: pt will demo understanding of using orthosis to provide support and protection with newly healing structures- pt will demo understanding of exercise orthosis by end of 1st visit Plan Plan: D/C D/C Information d/c sentence: If there are questions or concerns regarding this patient's occupational therapy, please fell free to call me at [phone]. Thank you for the referral of this patient. Sincerely, Danielle Lilly, OTR/L, CHT
== END 2024-12-06 19:00 | disposition home or self-care (01) ==
LOC: OT 17:00
PROVIDERS: PCP Family Medicine; Referring Provider Surgery Plastic and Reconstructive Surgery; Visit Provider Surgery Plastic and Reconstructive Surgery
DX: M67.89 Other specified disorders of synovium and tendon, multiple sites (principal)
CPT/HCPCS: 97110; 97140; 97166; 97530

== ENCOUNTER 2025-01-27 09:32 | Emergency (ER) | payer OTHER, SELFPAY ==
[2025-01-27] VITALS (8 sets, daily range): BP systolic 125–138; BP diastolic 62–88; PULSE 70–95; RESP 14–16; TEMP 37.1; O2SAT 95–100; BMI 37.3
[2025-01-27 13:12] LABS: Hematocrit 45.3 % (40-54); Hemoglobin 15.3 g/dL (13.0-16.5); Immature Granulocytes Count 0.040 X10^3/uL (0.0-0.0); Mean Corp Hgb Conc 33.8 g/dL (32-36); Mean Corpuscular Volume 92.8 fL (80-94); Mean Platelet Vol. 11.2 fl (6.2-12.0); NRBC Flagged by Analyzer 0 % (0-5); Platelet Count 217 K/mm3 (150-450); RBC Distribution Width CV 13.5 % (11.6-14.6); RBC Distribution Width SD 46.4 fl (35.1-43.9); Red Blood Count 4.88 M/mm3 (4.6-6.2); White Blood Count 11.7 K/mm3 (4.4-11.0)
[2025-01-27] MEDS: 0.9% Normal Saline (1000mL) 1,000 ML 999 ML IV (13:13)
--- NOTE | 2025-01-27 13:53 | ED.VIS.GI ---
HPI HPI - GI History of Present Illness Chief Complaint: Abd Pain [facility] Medical History (Updated 01/27/25 @ 14:[address] Jane Rendon, DO) Extensor tendon disruption Wears glasses Chewing tobacco use Non-smoker Allergies Home Medications ?Medication ?Instructions ?Recorded ?Last Taken ?Type cholecalciferol (vitamin D3) 10 125 unit PO DAILY 09/20/24 09/19/24 History mcg (400 unit) tablet (Vitamin D3) magnesium 200 mg tablet 200 mg PO DAILY 09/20/24 09/19/24 History multivitamin (Daily Multi-Vitamin 1 tab PO DAILY 09/20/24 09/19/24 History tablet) cetirizine 5 mg-pseudoephedrine ER 1 tab PO .qday PRN nasal congestion 09/21/24 09/19/24 History 120 mg tablet,extended release,12hr (All Day Allergy-D) zinc gluconate 50 mg tablet 50 mg PO DAILY 09/21/24 09/19/24 History MAGIC MOUTH WASH (BMX) 180 mL 5 ml buccal Q4H PRN PRN oral pain 01/27/25 Unknown Rx suspension #180 mL ondansetron 4 mg disintegrating 4 mg PO Q8H PRN PRN Nausea #10 tabs 01/27/25 Unknown Rx tablet Allergy/AdvReac Type Severity Reaction Status Date / Time No Known Allergies Allergy Verified 01/27/25 09:32 Surgical History History of surgery on wrist History of appendectomy Social History Smoking Status: Never smoker [facility] ED Constitutional Constitutional ED: Reports chills and sweats; Denies fever(s) ENT ENT ED: Reports other Details: left lower gum pain and rash Respiratory/Chest Respiratory/Chest: Denies cough Gastrointestinal Gastrointestinal: Reports abdominal pain, diarrhea, nausea and vomiting Genitourinary Genitourinary ED: Denies dysuria Musculoskeletal Musculoskeletal: Denies arthralgias or myalgias Integumentary Denies rash Neurologic Neurologic: Denies paresthesias or weakness Psychiatric Psychiatric: Denies anxiety Hematologic/Lymphatic Hematologic/Lymphatic: Denies easy bleeding or easy bruising EXAM Physical Exam Const Vital Signs: 01/27/25 09:32 01/27/25 12:11 01/27/25 12:44 Temperature 98.7 F Temperature Source Temporal Pulse Rate 95 78 Respiratory Rate 14 14 Blood Pressure 138/88 H 130/66 H Blood Pressure Mean 104 87 Pulse Ox 98 95 97 Oxygen Delivery Method Room Air Room Air 01/27/25 13:00 01/27/25 13:15 01/27/25 13:30 Temperature Temperature Source Pulse Rate 78 Respiratory Rate 14 Blood Pressure 126/62 H Blood Pressure Mean 78 Pulse Ox 95 98 98 Oxygen Delivery Method Room Air 01/27/25 14:00 01/27/25 15:15 Temperature 98.7 F Temperature Source Pulse Rate 70 70 Respiratory Rate 16 14 Blood Pressure 125/71 H 135/88 H Blood Pressure Mean 87 103 Pulse Ox 99 100 Oxygen Delivery Method Room Air Positive well nourished and well developed General Appearance ED: well developed and NAD HEENT Reports TM's clear and moist mucous membranes HEENT Narrative: Mild injection of the bilateral tympanic membranes. No air-fluid level appreciated. Normal cone of light bilaterally. On oropharyngeal exam he is no trismus. Normal oropharynx. Patient has clustered vesicular lesions on the gums below teeth 19 and 18. They are tender to palpation. No other oral lesions appreciated. Normal phonation. Mild left submental lymphadenopathy present. normocephalic and atraumatic Tympanic Membrane ED: Yes TM's clear Eyes PERRL Neck supple Resp normal respiratory effort and clear to auscultation bilaterally Cardio regular rate and regular rhythm GI non-tender and non-distended Auscultation: hyperactive bowel sounds Palpation: soft; Negative for tender or guarding Extremity full ROM Neuro Sensorium / Orientation: alert Motor Exam: Negative for general weakness Psych mental status grossly normal and thought process normal Skin no wounds Lesions: no lesions Rashes: no rashes MDM MDM MDM Narrative Medical decision making narrative: Patient was evaluated for sore and pain of the right mandibular and gum region as well as abdominal pain associated nausea vomiting diarrhea that started this morning. Upon arrival patient has normal vital signs. Differential includes gastroenteritis, viral syndrome, herpangina, primary HSV infection. Physical exam not consistent with dental abscess. Workup including CBC, CMP and lipase is obtained which is largely normal. He has a mild leukocytosis of 11.8 which is nonspecific. No significant electrolyte derangement. Patient is given IV fluids in the emergency room. States he is not currently feeling nauseous. Abdomen is soft and nontender. Lower suspicion for an acute intra-abdominal pathology requiring surgery. Do not think he requires a CT abdomen pelvis at this time. This does not sound like a small bowel obstruction as he is having both vomiting and diarrhea. The weakness in his mouth are concerning for possible HSV and he denies any history of cold sores or known herpes. Will send off a swab for this. Patient is concerned that it could be malignant. Discussed that it does not look malignant I am more concerned about a possible viral illness. Patient is discharged home with a prescription for Zofran as well as Magic mouthwash for symptom control. Encouraged follow-up with primary care doctor as well as dentist for his gum abnormality. Given return precautions. Discharged home in stable and improved condition. Is given a work note for today and tomorrow. Lab Data Attestation: I reviewed the patient's lab results. Labs: Laboratory Results - last 24 hr 01/27/25 12:14 WBC 11.7 H RBC 4.88 Hgb 15.3 Hct 45.3 MCV 92.8 MCH 31.4 MCHC 33.8 RDW Std Deviation 46.4 H RDW Coeff of Angelo 13.5 Plt Count 217 MPV 11.2 Immature Gran % (Auto) 0.300 Neut % (Auto) 82.1 H Lymph % (Auto) 7.1 L [place] % (Auto) 9.6 Eos % (Auto) 0.3 Baso % (Auto) 0.6 Absolute Neuts (auto) 9.6 H Absolute Lymphs (auto) 0.83 Nucleated RBC % 0 Sodium 138 Potassium 4.6 Chloride 105 Carbon Dioxide 21.8 Anion Gap 11 BUN 12 Creatinine 0.88 Estim Creat Clear Calc 158.36 Est GFR (MDRD) Non-Af 114 BUN/Creatinine Ratio 13.1 Glucose 102 H Calcium 8.8 Total Bilirubin 0.72 AST 25 ALT 33 Alkaline Phosphatase 116 Total Protein 7.1 Albumin 4.2 Globulin 2.9 Albumin/Globulin Ratio 1.5 Lipase 23 Discharge Plan Triage Chief Complaint: Abd Pain ED Provider: Jane Rendon Dx/Rx/DC Orders Clinical Impression: Stomatitis, Nausea vomiting and diarrhea Instructions: ED Canker Sore, ED Viral Syndrome (Adult), ED Vomit & Diarrhea Nonspec Adult Prescriptions: New ondansetron 4 mg tablet,disintegrating 4 mg PO Q8H PRN PRN (Reason: Nausea) Qty: 10 0RF MAGIC MOUTH WASH (BMX) 180 mL suspension 5 ml buccal Q4H PRN PRN (Reason: oral pain) Qty: 180 0RF Rx Instructions: diphenhydramine 12.5 mg/5 mL oral liquid 60 mL; aluminum-mag hydroxide-simethicone 400 mg-400 mg-40 mg/5 mL oral susp 60 mL; Lidocaine Viscous 2 % mucosal solution 60 mL; Per 180 mL No Action cholecalciferol (vitamin D3) [Vitamin D3] 10 mcg (400 unit) tablet 125 unit PO DAILY magnesium 200 mg tablet 200 mg PO DAILY multivitamin [Daily Multi-Vitamin] Tablet 1 tab PO DAILY cetirizine-pseudoephedrine [All Day Allergy-D] 5-120 mg tablet extended release 12 hr 1 tab PO .qday PRN (Reason: nasal congestion) zinc gluconate 50 mg tablet 50 mg PO DAILY Stand Alone Forms: ED Work / School Excuse Primary Care Provider: Alfredito King Referrals: Alfredito King, [Primary Care Provider, Family Practice] Activity Restrictions/Additional Instructions: You were swabbed for HSV (herpes) infection for your mouth. I suspect the lesions in your mouth are associate with a virus but I am not sure if it is from herpes simplex virus or another virus. The results will take to 3 days to come back. You be contacted they are positive. In the meantime you been prescribed a mouthwash to help with the pain. Make sure drinking fluids and eating a bland diet as far as your GI symptoms. Return if you have progression worsening your symptoms Print Language: [place] Disposition Disposition: Home, Self Care Discharge Date/Time: 01/27/25 15:16
[2025-01-27 14:12] LABS: AST(SGOT) 25 U/L (<=37); Alanine Aminotransfer ALT/SGPT 33 U/L (<=46); Albumin, Serum 4.2 g/dL (3.5-5.0); Alkaline Phosphatase 116 U/L (40-129); Anion Gap 11 (5-15); BUN 12 mg/dL (4-19); BUN/Creat Ratio 13.1 RATIO (10-20); Calcium,Total 8.8 mg/dL (7.6-11.0); Carbon Dioxide 21.8 mmol/L (21.0-32.0); Chloride 105 mmol/L (98-108); Estimated Creatinine Clearance 158.36 ml/min (50-250); Globulin 2.9 g/dL (2.2-4.2); Glucose 102 mg/dL (70-99); Lipase 23 U/L (13-75); Potassium 4.6 mmol/L (3.3-5.1)
[2025-01-31 12:08] LABS: HSV Culture Without Typing Positive (.)
== END 2025-01-27 15:16 | disposition home or self-care (01) ==
PROVIDERS: Emergency Provider Emergency Medicine; PCP Family Medicine; Visit Provider Emergency Medicine
DX: K12.1 Other forms of stomatitis (principal); R19.7 Diarrhea, unspecified; R11.2 Nausea with vomiting, unspecified
CPT/HCPCS: 80053; 83690; 85025; 87255; 96360; 99284; A4216